=== PATIENT | female | born 1955 ===

== ENCOUNTER 2017-05-18 16:25 | Emergency (ER) | payer MEDICARE, OTHER ==
--- NOTE | 2017-05-18 17:09 | C.PDOC ---
History Of Present Illness 61 year old female who presents to the ER with a complaint of pain to the face, left shoulder, left hip, and neck after she slipped down an escalator [employer]. Denies weakness, numbness, LOC, nausea, or vomiting. - HPI Time Seen by Provider: 05/18/17 16:51 Chief Complaint (Nursing): Trauma History Per: Patient History/Exam Limitations: no limitations Onset/Duration Of Symptoms: Mins Injury Occurred (Timing): Just Before Arrival Location Of Injury: Left: Leg, Shoulder, Anterior: Face, Posterior: Neck Recent travel outside of the [place]: No Past Medical History Reviewed: Historical Data, Nursing Documentation, Vital Signs Vital Signs: Last Vital Signs Temp 97.5 F L 05/18/17 18:41 Pulse 85 05/18/17 18:41 Resp 22 05/18/17 18:41 BP 123/83 05/18/17 18:41 Pulse Ox 98 05/18/17 20:34 - Medical History PMH: Arthritis, HTN Other Surgeries: Knee replacement Family History: States: Unknown Family Hx - Social History Hx Alcohol Use: No Hx Substance Use: No - Immunization History Hx Tetanus Toxoid Vaccination: No Hx Influenza Vaccination: No Hx Pneumococcal Vaccination: No Review Of Systems Eyes: Negative for: Vision Change Gastrointestinal: Negative for: Nausea, Vomiting Musculoskeletal: Positive for: Neck Pain, Shoulder Pain, Leg Pain Neurological: Negative for: Weakness, Numbness Physical Exam - Physical Exam Appears: Non-toxic Skin: Normal Color, Warm, Dry Head: Atraumatic, Normacephalic Oral Mucosa: Moist Lips: Abrasion (Lower) Neck: No Midline Cervical Tenderness, Paracervical Tenderness Chest: Symmetrical, No Tenderness Gastrointestinal/Abdominal: Soft, No Tenderness Back: Normal Inspection, No Vertebral Tenderness, No Paraspinal Tenderness Extremity: Normal ROM (x4), Tenderness (Left shoulder, left hand, left hip), No Deformity, No Swelling Neurological/Psych: Oriented x3, Normal Speech, Normal Cognition ED Course And Treatment O2 Sat by Pulse Oximetry: 98 (Room air) Pulse Ox Interpretation: Normal - CT Scan/US CT Head Other Rad Studies (CT/US): Read By Radiologist, Radiology Report Reviewed CT/US Interpretation: PROCEDURE: CT HEAD WITHOUT CONTRAST. HISTORY: fall. COMPARISON: None available. TECHNIQUE: Axial computed tomography images were obtained through the head/brain without intravenous contrast. Radiation dose: Total exam DLP = 1050.10 mGy-cm. This CT exam was performed using one or more of the following dose reduction techniques: Automated exposure control, adjustment of the mA and/or kV according to patient size, and/or use of iterative reconstruction technique. FINDINGS: HEMORRHAGE: No intracranial hemorrhage. BRAIN: No mass effect or edema. Bilateral basal ganglia calcifications. The sharp-white matter differentiation appears intact. Please note that MRI with diffusion imaging is more sensitive in the detection of acute ischemic event. VENTRICLES: No hydrocephalus. CALVARIUM: Unremarkable. PARANASAL SINUSES: Unremarkable as visualized. No significant inflammatory changes. MASTOID AIR CELLS: Unremarkable as visualized. No inflammatory changes. OTHER FINDINGS: None. IMPRESSION: No acute intracranial pathology identified. CT Cervical Spine Other Rad Studies (CT/US): Read By Radiologist, Radiology Report Reviewed CT/US Interpretation: PROCEDURE: CT scan cervical spine dated 05/18/2017. HISTORY: <fall>. COMPARISON: No prior studies available comparison. TECHNIQUE: Axial computed tomography images were obtained of the cervical spine without the use of intravenous contrast. Coronal and sagittal reformatted images were created and reviewed. Radiation dose: Total exam DLP = 592.29 mGy- cm. This CT exam was performed using one or more of the following dose reduction techniques: Automated exposure control, adjustment of the mA and/or kV according to patient size, and/or use of iterative reconstruction technique. FINDINGS: VERTEBRAE: Current study reveals no acute compression fractures nor retropulsed fragments. Vertebral bodies exhibit relatively normal stature. There is mild straightening of the normal cervical lordosis which could be due to patient positioning gantry however underlying element of muscle spasm may contribute. Vertebral bodies and facets otherwise normally aligned. . Facets normally aligned. Note made of apparent fusion left posterior elements of the C3 and C4 vertebral body segments. . DISCS/SPINAL CANAL/NEURAL FORAMINA: Multilevel degenerative spondylosis. At the C2-C3 level, there is adequate disc height. No disc herniation or significant disc bulge. Significant right- sided facet arthropathy with right-sided foraminal stenosis. Central canal and left exit foramen appears adequate. At the C3-C4 level, significant left-sided facet arthropathy above and as mentioned above left-sided posterior element fusion. Right exit foramen is stenotic. Left exit foramen appears adequate as does the central canal. At the C4-C5 level, there is minor posterior disc space narrowing with small broad-based disc bulge ridge complex that does result in canal narrowing and compression of the ventral surface of the thecal sac and spinal cord. . Mild hypertrophic uncovertebral facet joints are present. . Exit foramina are narrowed bilaterally. At the C6-C7 level, there is disc space narrowing with small irregular osteophytic ridge disc bulge complex that results in central canal stenosis and presumed compression of the ventral surface of the thecal sac/ spinal cord. Exit foramina are narrowed bilaterally due to hypertrophic uncovertebral facet joints. Compresses the ventral surface of the thecal sac. PARASPINAL SOFT TISSUES: Prevertebral and paraspinal soft tissues grossly unremarkable. OTHER FINDINGS: Lung apices are clear. IMPRESSION: No acute fractures. Straightening of the normal cervical lordosis as above Multilevel degenerative spondylosis with the canal narrowing and cord compression at several levels on multilevel bilateral variable on foraminal stenosis. See above discussion for additional details. Shoulder CT Other Rad Studies (CT/US): Read By Radiologist, Radiology Report Reviewed CT/US Interpretation: EXAM: CT Left Upper Extremity Without Intravenous Contrast, Shoulder. CLINICAL HISTORY: 61 years old, female; Pain and injury or trauma; Fall; Initial encounter; Swelling (edema); Shoulder;. Left; Additional info: Shoulder pain after injury, ? xray. TECHNIQUE: Axial computed tomography images of the left shoulder without intravenous contrast. All CT scans at. this facility use one or more dose reduction techniques, viz. : automated exposure control; ma/kV. adjustment per patient size (including targeted exams where dose is matched to indication; i.e. head);. or iterative reconstruction technique. COMPARISON: No relevant prior studies available. FINDINGS: Bones/joints: There are severe degenerative changes of the glenohumeral joint. Extensive. hypertrophic bony changes, adaptive sclerosis, subchondral cystic changes and joint space. obliteration. No clavicular fracture, no a.c. joint separation. No fracture or dislocation left shoulder. Left scapula is intact. Soft tissues: Unremarkable. Lung apices: The visualized portions of the lung apices are normal. IMPRESSION: Marked severe degenerative changes left shoulder. No fracture or dislocation seen. Progress Note: CT cervical spine, CT head, left hand x-ray, pelvis x-ray, and left shoulder x-ray ordered. Tetanus vaccination administered. Dilaudid IM ordered. On re-evaluation patient feels better, ambulatory in ED. Shoulder sling was applied. Patient was d/c home with PMD and Ortho follow up. Disposition - Disposition Referrals: Mario Heck III, MD [Staff Provider] - Disposition: HOME/ ROUTINE Disposition Time: 20:32 Condition: STABLE Additional Instructions: Follow up with your PMD and Orthopedist within 1-2 days. Return to Ed if feel worse. Instructions: Contusion in Adults (ED) Forms: [employer] (Kyrgyz) Print Language: GEORGIAN - Clinical Impression Clinical Impression: Multiple contusions - Scribe Statement The provider has reviewed the documentation as recorded by the Scribe Lang Yusuf All medical record entries made by the Scribe were at my direction and personally dictated by me. I have reviewed the chart and agree that the record accurately reflects my personal performance of the history, physical exam, medical decision making, and the department course for this patient. I have also personally directed, reviewed, and agree with the discharge instructions and disposition.
[2017-05-18] MEDS ORDERED: Tetanus/Diphtheria Toxoids 0.5 ml Syringe IM ONE ×2 (17:12→18:19)
--- NOTE | 2017-05-18 17:39 | CT ---
PROCEDURE: CT HEAD WITHOUT CONTRAST. HISTORY: fall COMPARISON: None available. TECHNIQUE: Axial computed tomography images were obtained through the head/brain without intravenous contrast. Radiation dose: Total exam DLP = 1050.10 mGy-cm. This CT exam was performed using one or more of the following dose reduction techniques: Automated exposure control, adjustment of the mA and/or kV according to patient size, and/or use of iterative reconstruction technique. FINDINGS: HEMORRHAGE: No intracranial hemorrhage. BRAIN: No mass effect or edema. Bilateral basal ganglia calcifications. The sharp-white matter differentiation appears intact. Please note that MRI with diffusion imaging is more sensitive in the detection of acute ischemic event. VENTRICLES: No hydrocephalus. CALVARIUM: Unremarkable. PARANASAL SINUSES: Unremarkable as visualized. No significant inflammatory changes. MASTOID AIR CELLS: Unremarkable as visualized. No inflammatory changes. OTHER FINDINGS: None. IMPRESSION: No acute intracranial pathology identified.
--- NOTE | 2017-05-18 17:41 | CT ---
PROCEDURE: CT scan cervical spine dated 05/18/2017 HISTORY: <fall> COMPARISON: No prior studies available comparison TECHNIQUE: Axial computed tomography images were obtained of the cervical spine without the use of intravenous contrast. Coronal and sagittal reformatted images were created and reviewed. Radiation dose: Total exam DLP = 592.29 mGy-cm. This CT exam was performed using one or more of the following dose reduction techniques: Automated exposure control, adjustment of the mA and/or kV according to patient size, and/or use of iterative reconstruction technique. FINDINGS: VERTEBRAE: Current study reveals no acute compression fractures nor retropulsed fragments. Vertebral bodies exhibit relatively normal stature. There is mild straightening of the normal cervical lordosis which could be due to patient positioning gantry however underlying element of muscle spasm may contribute. Vertebral bodies and facets otherwise normally aligned. . Facets normally aligned. Note made of apparent fusion left posterior elements of the C3 and C4 vertebral body segments. . DISCS/SPINAL CANAL/NEURAL FORAMINA: Multilevel degenerative spondylosis. At the C2-C3 level, there is adequate disc height. No disc herniation or significant disc bulge. Significant right-sided facet arthropathy with right-sided foraminal stenosis. Central canal and left exit foramen appears adequate. At the C3-C4 level, significant left-sided facet arthropathy above and as mentioned above left-sided posterior element fusion. Right exit foramen is stenotic. Left exit foramen appears adequate as does the central canal. At the C4-C5 level, there is minor posterior disc space narrowing with small broad-based disc bulge ridge complex that does result in canal narrowing and compression of the ventral surface of the thecal sac and spinal cord. . Mild hypertrophic uncovertebral facet joints are present. . Exit foramina are narrowed bilaterally. At the C6-C7 level, there is disc space narrowing with small irregular osteophytic ridge disc bulge complex that results in central canal stenosis and presumed compression of the ventral surface of the thecal sac/ spinal cord. Exit foramina are narrowed bilaterally due to hypertrophic uncovertebral facet joints. Compresses the ventral surface of the thecal sac PARASPINAL SOFT TISSUES: Prevertebral and paraspinal soft tissues grossly unremarkable. OTHER FINDINGS: Lung apices are clear IMPRESSION: No acute fractures. Straightening of the normal cervical lordosis as above Multilevel degenerative spondylosis with the canal narrowing and cord compression at several levels on multilevel bilateral variable on foraminal stenosis. See above discussion for additional details.
[2017-05-18 18:42] VITALS: BP 123/83; PULSE 85; RESP 22; TEMP 97.5
[2017-05-18 20:34] VITALS: O2SAT 98
--- NOTE | 2017-05-19 07:31 | CT ---
PROCEDURE: LEFT SHOULDER CT WITHOUT CONTRAST HISTORY: shoulder pain after injury, ? xray COMPARISON: Left shoulder radiographs 05/18/2017 TECHNIQUE: A volumetric CT acquisition through the left shoulder was performed without intravenous contrast as requested. Reformatted datasets have not provided in sagittal, axial and coronal planes. Radiation dose: Total exam DLP = 390 mGy-cm. This CT exam was performed using one or more of the following dose reduction techniques: Automated exposure control, adjustment of the mA and/or kV according to patient size, and/or use of iterative reconstruction technique. FINDINGS: No acute fracture subluxation or dislocation is appreciated. There is advanced degenerate joint disease appreciate the glenohumeral joint comprised of gross joint space narrowing, cortical articular sclerosis and osteophyte development. Subchondral cyst formation appears prominent, more so at the left humeral head thin of the glenoid articular surface. Moderately prominent heterotopic calcification is appreciated anteromedial to the left humeral head. No destructive lytic or blastic lesion is identified. The acromioclavicular joint appears mildly distended degenerated with superior osteophytes identified. No prominent inferior osteophytes. Local soft tissues appear diffusely unremarkable and no definite fluid collection is appreciated. Incidental views through the visualized left lung appear unremarkable. IMPRESSION: No acute fracture, subluxation or dislocation at the left shoulder although advanced degenerate joint disease appreciated throughout the glenohumeral joint. Moderate degenerative joint changes are noted at the acromioclavicular joint. Concur with V rad preliminary report dated 05/18/2017. Yes
--- NOTE | 2017-05-19 09:31 | RAD ---
PROCEDURE: Left Hand Radiographs. HISTORY: fall COMPARISON: None. FINDINGS: BONES: Normal. No fracture. JOINTS: Significant joint space narrowing and articular cortical sclerosis appreciate throughout the interphalangeal joints diffusely and somewhat less apparent on the proximal interphalangeal joints but still indicative of degenerate joint disease. Advanced similar change appears at the basal joint as well as the 1st metacarpal phalangeal joint. This lateral subluxation of the 1st metacarpal bone relative to the trapezium on degenerative basis. SOFT TISSUES: Normal. OTHER FINDINGS: None. IMPRESSION: Advanced osteoarthritis of the basal joint with moderate osteoarthritis throughout the digits as discussed above. No acute fracture or dislocation.
--- NOTE | 2017-05-19 09:39 | RAD ---
PROCEDURE: Left Hip X-ray Radiographs. HISTORY: fall COMPARISON: No prior comparison FINDINGS: BONES: No suspicious lytic or blastic change. No fracture identified. Pelvic ring appears intact including the pubic symphysis. . JOINTS: Limited cortical sclerosis appreciated at the weight-bearing portion of the left hip joint compatible degenerate joint disease with similar changes seen in the right as well as bilateral sacroiliac joints.. SOFT TISSUES: Normal. OTHER FINDINGS: None. IMPRESSION: No acute fracture dislocation of the left hip joint or the pelvic ring. Degenerative sacroiliac joint changes seen bilaterally as well as incidentally at the right hip.
--- NOTE | 2017-05-19 09:41 | RAD ---
PROCEDURE: Radiographs of the Left Shoulder HISTORY: fall COMPARISON: No prior. FINDINGS: BONES: No acute fracture appreciate or suspicious lytic or blastic change. JOINTS: Advanced osteoarthritis is appreciated at the glenohumeral joint with gross joint space narrowing and cortical articular sclerosis is identified as well as osteophyte development, particularly at the inferior margin the margins of the joint. Heterotopic bone is seen cephalad to the joint, likely on a chronic basis. Please see separate left shoulder CT exam also performed 05/18/2017 as well. Moderate degenerate changes seen at the acromioclavicular joint. No narrowing of the acromioclavicular joint is identified. SOFT TISSUES: Heterotopic bone/ calcification as discussed above. OTHER FINDINGS: None. IMPRESSION: No definite acute fracture or dislocation with advanced osteoarthritis appreciated at the glenohumeral joint, moderately at the acromioclavicular joint. Please see separate CT left shoulder 05/18/2017 as well.
== END 2017-05-18 20:54 | disposition home or self-care (01) ==
LOC: C.ER 16:25
DX: S40.012A Contusion of left shoulder, initial encounter (principal); S70.12XA Contusion of left thigh, initial encounter; S10.93XA Contusion of unspecified part of neck, initial encounter; W10.0XXA Fall (on)(from) escalator, initial encounter; Y92.89 Other specified places as the place of occurrence of the external cause
CPT/HCPCS: 70450; 72125; 73030; 73130; 73200; 73502; 90471; 90714; 96372; 99284; J1170